=== PATIENT | male | born 2000 | race Caucasian/White ===

== ENCOUNTER 2020-05-11 15:04 | Emergency (ER) | payer OTHER ==
[2020-05-11] MEDS ORDERED: Ketorolac 10 MG Tab PO ONE (15:05)
--- NOTE | 2020-05-11 16:14 | EDM.PDOC ---
ED HPI GENERAL MEDICAL PROBLEM - General Chief Complaint: Lower Extremity Injury/Pain Stated Complaint: RIGHT HIP PAIN Time Seen by Provider: 05/11/20 15:43 Source of Information: Reports: Patient History Limitations: Reports: No Limitations - History of Present Illness INITIAL COMMENTS - FREE TEXT/NARRATIVE: Patient to the emergency department where he was in the shower slipped and fell landing on his right buttock/hip area a few days ago he advises that he is to has pain to that area. The patient denies any back or neck pain he denies any loss of consciousness. The patient denies any lower extremity pain other than the hip pain. The patient has no bruising or swelling to the area. It is tender with palpation. The patient is able to ambulate without problems other than tenderness in the hip area. There is no numbness or tingling. Duration: Day(s): (Few days ago) Location: Reports: Lower Extremity, Right (Right hip pain) Quality: Reports: Ache Severity: Mild Improves with: Reports: None Worsens with: Reports: Other (Worsen with ambulation) Context: Reports: Other (L in the shower) Associated Symptoms: Denies: Chest Pain, Fever/Chills, Headaches, Nausea/Vom iting, Weakness Treatments [employer]: Reports: Other (see below) (none) Right Hip Pain Score (Numeric/FACES): 6 - Related Data Allergies Allergy/AdvReac Type Severity Reaction Status Date / Time No Known Allergies Allergy Verified 05/11/20 15:04 Home Meds: Home Meds . [No Known Home Meds] 05/11/20 [History] Past Medical History - Past Health History Medical/Surgical History: Denies Medical/Surgical History - Past Surgical History Head Surgeries/Procedures: Reports: None Social & Family History - Family History Family Medical History: Noncontributory - Tobacco Use Smoking Status *Q: Never Smoker - Caffeine Use Caffeine Use: Reports: Coffee - Recreational Drug Use Recreational Drug Use: No Review of Systems - Review of Systems Review Of Systems: See Below Constitutional: Reports: No Symptoms Eyes: Reports: No Symptoms Respiratory: Reports: No Symptoms. Denies: Shortness of Breath Cardiovascular: Reports: No Symptoms. Denies: Chest Pain GI/Abdominal: Reports: No Symptoms. Denies: Abdominal Pain, Nausea, Vomiting Genitourinary: Reports: No Symptoms. Denies: Dysuria, Hematuria Musculoskeletal: Reports: Joint Pain (Right hip pain). Denies: Neck Pain, Back Pain Skin: Reports: No Symptoms. Denies: Bruising, Erythema Neurological: Reports: No Symptoms. Denies: Headache, Numbness, Tingling, Weakness Psychiatric: Reports: No Symptoms ED EXAM, GENERAL - Physical Exam Exam: See Below Exam Limited By: No Limitations General Appearance: Alert, WD/WN, No Apparent Distress Head: Atraumatic, Normocephalic Neck: Normal Inspection, Supple, Non-Tender, Full Range of Motion Respiratory/Chest: No Respiratory Distress, Lungs Clear, Normal Breath Sounds, Chest Non-Tender Cardiovascular: Normal Peripheral Pulses, Regular Rate, Rhythm, No Murmur Peripheral Pulses: 2+: Radial (L), Radial (R), Posterior Tibial (R) GI/Abdominal: Soft, Non-Tender Back Exam: Normal Inspection, Full Range of Motion. No: Vertebral Tenderness Extremities: Normal Inspection, Normal Range of Motion, Normal Capillary Refill, Other (Tenderness over the lateral right hip with palpation from the trochanter area) Neurological: Alert, Oriented, Normal Cognition, Normal Gait, No Motor/Sensory Deficits Psychiatric: Normal Affect, Normal Mood Skin Exam: Warm, Dry, Intact, Normal Color Course - Vital Signs Text/Narrative:: The patient was evaluated in the emergency department the patient did have a x- ray of the bilateral hip and pelvis which was read by the radiologist as negative see the radiology report for complete details. The patient will be given Toradol 10 mg 3 times daily as needed he will be advised to follow with his family doctor this coming week for further evaluation and treatment if the pain continues the patient was advised that he will need to have a CT of the hip and pelvis for further evaluation as sometimes these types of fractures do not necessarily appear on plain x-ray. Few days one would suspect that a hairline fracture would pronounce itself at this point. Last Recorded V/S: Last Vital Signs Temp 36.7 C 05/11/20 15:46 Pulse 67 05/11/20 15:46 Resp 16 05/11/20 15:46 BP 125/71 05/11/20 15:46 Pulse Ox 98 05/11/20 15:46 - Orders/Labs/Meds Orders: Active Orders 24 hr Category Date Time Status Hip Min 3V or 4V w Pelvis Bi [CR] Stat Exams 05/11/20 15:10 Taken Departure - Departure Time of Disposition: 16:17 Disposition: Home, Self-Care 01 Clinical Impression: Fall, Contusion of right hip - Discharge Information *PRESCRIPTION DRUG MONITORING PROGRAM REVIEWED*: Not Applicable *COPY OF PRESCRIPTION DRUG MONITORING REPORT IN PATIENT DWAINE: Not Applicable Instructions: Contusion, [id number], Hip Pain Additional Instructions: Increase fluids Toradol 10 mg every 8 hours as needed for pain Warm moist heat off-and-on frequently to your right hip Light duty for the next 2 days Follow-up with your family doctor this coming week for further evaluation; and possible additional imaging including a CT if symptoms persist Return to the emergency department sooner if worse or any problems Sepsis Event Note (ED) - Evaluation Sepsis Screening Result: No Definite Risk - Focused Exam Vital Signs: Vital Signs Temp Pulse Resp BP Pulse Ox 05/11/20 15:46 36.7 C 67 16 125/71 98 05/11/20 15:05 36.7 C 67 16 125/71 98 - Problem List & Annotations (1) Contusion of right hip SNOMED Code(s): 92347664 Code(s): S70.01XA - CONTUSION OF RIGHT HIP, INITIAL ENCOUNTER Status: Acute Priority: Medium Qualifiers: Encounter type: initial encounter Qualified Code(s): S70.01XA - Contusion of right hip, initial encounter (2) Fall SNOMED Code(s): 8293534, 338821952 Code(s): W19.XXXA - UNSPECIFIED FALL, INITIAL ENCOUNTER Status: Acute Priority: Medium Qualifiers: Encounter type: initial encounter Qualified Code(s): W19.XXXA - Unspecified fall, initial encounter - Problem List Review Problem List Initiated/Reviewed/Updated: Yes - My Orders Last 24 Hours: My Active Orders 05/11/20 15:10 Hip Min 3V or 4V w Pelvis Bi [CR] Stat - Assessment/Plan Last 24 Hours: My Active Orders 05/11/20 15:10 Hip Min 3V or 4V w Pelvis Bi [CR] Stat Plan: As above
[2020-05-11] MEDS: Take Home: Ketorolac 10 MG Tab, 4 Tab Pack PO ONE (16:42)
== END 2020-05-11 16:40 | disposition home or self-care (01) ==
LOC: CC.ED 15:04
DX: S70.01XA Contusion of right hip, initial encounter (principal); W01.0XXA Fall on same level from slipping, tripping and stumbling without subsequent striking against object, initial encounter
CPT/HCPCS: 73522; 99283; A9270